=== PATIENT | female | born 1975 ===

== ENCOUNTER → 2023-11-20 07:56 | Outpatient (REF) | payer BC, SELFPAY | LOC: WDC 07:56 | PROVIDERS: ATTENDING PHYSICIAN Obstetrics & Gynecology; FAMILY PHYSICIAN Nurse Practitioner Primary Care | DX: Z12.31 Encounter for screening mammogram for malignant neoplasm of breast (principal) | CPT/HCPCS: 77063; 77067 ==

== ENCOUNTER → 2024-11-21 07:57 | Outpatient (REF) | payer BC, SELFPAY | LOC: WDC 07:57 | PROVIDERS: ATTENDING PHYSICIAN Nurse Practitioner Primary Care | DX: Z12.31 Encounter for screening mammogram for malignant neoplasm of breast (principal) | CPT/HCPCS: 77063; 77067 ==